=== PATIENT | male | born 1965 | race Caucasian/White ===

== ENCOUNTER 2018-09-29 21:40 | Emergency (ER) | payer MEDICAID ==
[~2018-09-29] VITALS: Ht 193 cm; Wt 95.3 kg
--- NOTE | 2018-09-29 22:10 | NUR ---
RECEVED PATIENT WITH C/O GENERALIZED BACK PAIN X 2 WEEKS. PATIENT WITH HX OF CHRINIC BACK PAIN USUALLY CONTROL WITH MOTRIN. PATIENT STATES PAIN FOR 2 WEEKS WITHOUT RELIEF, ABLE TO AMBULATE WITHOUT DIFFICULTY, PAIN 8/10, NEUROLOGICAL INTACT, DR DENTON AT [facility], WAITING FOR ORDERS.
[2018-09-29] MEDS ORDERED: HYDROCODONE/APAP 10-325 MG TABLET ONE ×2 (22:14→22:59)
[2018-09-29] MEDS ORDERED: CYCLOBENZAPRINE HCL 10 MG TABLET ONE (22:14)
[2018-09-29] MEDS ORDERED: HYDROCODONE/APAP 10-325 MG TABLET PO ONE ×2 (22:15→22:45)
[2018-09-29] MEDS ORDERED: CYCLOBENZAPRINE HCL 10 MG TABLET PO ONE (22:15)
--- NOTE | 2018-09-29 22:17 | NUR ---
MEDICATED FOR PAIN
--- NOTE | 2018-09-29 23:00 | NUR ---
MEDICATED FOR PAIN WITH NORCO 10MG PO, WAITING FOR DISCHARGE.
--- NOTE | 2018-09-29 23:00 | NUR ---
PATIENT READY FOR DISCHARGE, STILL C/O PAIN, STATES MED DID NOT WORK. DR DENTON NOTIFIED.
[2018-09-29 23:17] VITALS: BP 144/96
--- NOTE | 2018-09-29 23:19 | NUR ---
DISCHARGE HOME WITH RX AND INSTRUCTIONS TO FOLLOW UP WITH PMD IN AM. AMBULATE OUT OF ER WITH STEADY GAIT. NO DISTRESS NOTED.
== END 2018-09-29 23:29 | disposition home or self-care (01) ==
LOC: ER 21:47 → EDSEX 21:47 → ER 23:29
DX: M54.40 Lumbago with sciatica, unspecified side (principal); R31.9 Hematuria, unspecified; Z88.0 Allergy status to penicillin
CPT/HCPCS: A4663

== ENCOUNTER 2018-09-30 23:27 | Emergency (ER) | payer MEDICAID ==
[~2018-09-30] VITALS: Ht 193 cm; Wt 95.3 kg
[2018-09-30] MEDS ORDERED: MORPHINE SULFATE 4 MG/1 ML DISP.SYRIN IM ONE (23:45)
[2018-09-30] MEDS ORDERED: MORPHINE SULFATE 4 MG/1 ML DISP.SYRIN ONE (23:48)
--- NOTE | 2018-10-01 | NUR ---
Urine sample collected & sent to lab. Pt went down to radiology dept for CT scan accompanied by tech.
[2018-10-01 00:10] LABS: *BLOOD, URINE 3+ (NEGATIVE); *CLARITY,URINE CLOUDY (CLEAR); *COLOR,URINE AMBER (YELLOW); *KETONES,URINE 1+ (NEGATIVE); *PROTEIN,URINE 2+ (NEGATIVE); LEUKOCYTE ESTERASE ,URINE NEGATIVE (NEGATIVE); NITRITE, URINE NEGATIVE (NEGATIVE); PH,URINE 5.5 (5.0-8.0); UGLUCOSE NEGATIVE (NEGATIVE)
[2018-10-01 00:12] LABS: *BILIRUBIN,URIN 2+ (NEGATIVE)
--- NOTE | 2018-10-01 00:14 | NUR ---
Pt back in room, pending results.
[2018-10-01 00:25] LABS: RBC,URINE TNTC /HPF (0-3)
[2018-10-01 00:26] LABS: BACTERIA,URINE NONE SEEN /HPF (NONE SEEN); SQUAMOUS EPITHELIAL CELL,UR NONE SEEN /HPF (NONE SEEN); WBC,URINE 0-3 /HPF (0-3)
[2018-10-01] MEDS ORDERED: TAMSULOSIN HCL 0.4 MG CAP.SR.24H ONE (01:00)
[2018-10-01] MEDS ORDERED: KETOROLAC TROMETHAMINE 30 MG INJ IM ONE (01:00)
[2018-10-01] MEDS ORDERED: KETOROLAC TROMETHAMINE 30 MG INJ ONE (01:00)
[2018-10-01] MEDS ORDERED: TAMSULOSIN HCL 0.4 MG CAP.SR.24H PO ONE (01:00)
--- NOTE | 2018-10-01 01:14 | NUR ---
Patient discharged to home in stable conditon. Written and verbal after care instructions given. Patient verbalizes understanding of instructions. Pt ambulated out of ER in steady gait. All belongings with pt. VSS. NAD noted.
[2018-10-01 01:15] VITALS: BP 128/77
== END 2018-10-01 01:16 | disposition home or self-care (01) ==
LOC: ER 23:31
DX: N20.1 Calculus of ureter (principal); M54.5 Low back pain; Z88.0 Allergy status to penicillin
CPT/HCPCS: 74176; 81001; 96372 ×2; 99284; J1885; J2270; A4663